=== PATIENT | female | born 1970 | race African-American/Black ===

== ENCOUNTER 2022-07-24 23:54 | Emergency (ER) | payer OTHER ==
[2022-07-25] MEDS ORDERED: METOCLOPRAMIDE 10 MG/2mL INJ ONE (00:38)
[2022-07-25] MEDS ORDERED: ONDANSETRON 4 MG/2 ML VIAL ONE (00:39)
[2022-07-25] MEDS ORDERED: DIPHENHYDRAMINE 50 MG/ML VIAL ONE (00:39)
[2022-07-25 01:01] LABS: Absolute Lymphocytes (CBC) 2.5 K/uL (0.7-4.9); Hematocrit 41.9 % (36.0-45.0); Lymphocytes % 22.9 % (15.3-44.8); MCV 91.2 fL (80-100); MPV 8.4 fL (7.6-11.3)
[2022-07-25 01:19] LABS: Magnesium 1.8 mg/dL (1.8-2.4); Potassium 3.6 mmol/L (3.5-5.1); Troponin High Sensitivity 13.7 pg/mL (<58.9)
[2022-07-25 01:22] LABS: Urine Blood Negative (Negative); Urine Glucose 3+ (Negative); Urine Protein Trace (Negative); Urine pH 7.5 (5.0-7.0)
[2022-07-25] MEDS ORDERED: KETOROLAC 30 MG/ML INJ ONE (02:07)
[2022-07-25] MEDS ORDERED: INSULIN -REGULAR HUMAN 50 UNIT/0.5 ML ML ONE (02:08)
--- NOTE | 2022-07-25 02:22 | ER ---
Nurse's Notes [facility] Name: Ramya Salinas Age: 52 yrs Sex: Female : 1970 Arrival Date: 07/24/2022 Time: 23:57 Bed 18 Private MD: Diagnosis: Headache;Hypertensive heart disease without heart failure;Diabetes mellitus due to underlying condition with hyperglycemia Presentation: 07/25 00:26 Chief complaint: Patient states: I have had a headache for 2 days now, I have vomited aa9 twice today and my BP is high. Coronavirus screen: Vaccine status: Patient reports receiving the 2nd dose of the covid vaccine. Ebola Screen: No symptoms or risks identified at this time. Initial Sepsis Screen: Does the patient meet any 2 criteria? No. Patient's initial sepsis screen is negative. Does the patient have a suspected source of infection? No. Patient's initial sepsis screen is negative. Risk Assessment: Do you want to hurt yourself or someone else? Patient reports no desire to harm self or others. Onset of symptoms was July 25, 2022. 00:26 Method Of Arrival: Ambulatory aa9 00:26 Acuity: MARITA 4 aa9 Triage Assessment: 00:29 Headache History: The patient has had previous headaches and this one is different than aa9 previous episodes. General: Appears uncomfortable, Behavior is cooperative, appropriate for age, anxious. Pain: Complains of pain in headache all over Pain currently is 8 out of 10 on a pain scale. Pain began 2-3 days ago. Noted to be moaning, resistant to movement, Also complains of nausea. EENT: No signs and/or symptoms were reported regarding the EENT system. Neuro: Level of Consciousness is awake, alert, obeys commands, Oriented to person, place, time, situation, Junior Brand Manager are equal bilaterally. Neuro: Reports headache in entire parietal area, frontal area, occipital area, photophobia. Cardiovascular: Patient's skin is warm and dry. Respiratory: Airway is patent Respiratory effort is even, unlabored. GI: Reports nausea, vomiting. : No signs and/or symptoms were reported regarding the genitourinary system. Derm: Skin is intact, is healthy with good turgor. Historical: - Allergies: 00:28 cats; aa9 00:28 SHELLFISH; aa9 00:28 Sulfa (Sulfonamide Antibiotics); aa9 00:28 seafood; aa9 - Home Meds: 00:28 hydrochlorothiazide 25 mg Oral tab [Active]; Jardiance 10 mg oral tab for type 2 aa9 diabetes mellitus [Active]; metformin 500 mg Oral tab [Active]; - PMHx: 00:28 Asthma; Diabetes mellitus; Hypertensive disorder; aa9 - PSHx: 00:28 None; aa9 - Immunization history:: Client reports receiving the 2nd dose of the Covid vaccine. - Social history:: Smoking status: . Screenin:31 Abuse screen: Denies threats or abuse. Denies injuries from another. Nutritional aa9 screening: No deficits noted. Tuberculosis screening: No symptoms or risk factors identified. Fall Risk None identified. Assessment: 02:00 Reassessment: Patient appears in no apparent distress at this time. General: Appears aa9 comfortable, Behavior is calm, cooperative, appropriate for age. Neuro: Level of Consciousness is awake, alert, obeys commands, Oriented to person, place, time, situation, Junior Brand Manager are equal bilaterally. Cardiovascular: Patient's skin is warm and dry. Respiratory: Airway is patent Respiratory effort is even, unlabored. : No signs and/or symptoms were reported regarding the genitourinary system. Derm: Skin is intact, is healthy with good turgor. Vital Signs: 00:26 BP 156 / 90; Pulse 80; Resp 18 S; Temp 97.6(O); Pulse Ox 100% on R/A; Weight 97.52 kg aa9 (R); Height 5 ft. 10 in. (177.80 cm) (R); Pain 8/10; 02:19 BP 148 / 93; Pulse 78; Resp 17 S; Pulse Ox 98% ; aa9 00:26 Body Mass Index 30.85 (97.52 kg, 177.80 cm) aa9 ED Course: 07/24 23:57 Patient arrived in ED. bp1 07/25 00:16 Christo Medina PA is PHCP. cp 00:16 Christo Adams MD is Attending Physician. cp 00:26 Kathryn Atkinson, FRANSICO is Primary Nurse. aa9 00:28 Triage completed. aa9 00:31 Arm band placed on. aa9 00:31 Patient has correct armband on for positive identification. Bed in low position. Call aa9 light in reach. Adult w/ patient. Door closed. Lights dimmed. 00:54 Inserted saline lock: 20 gauge in right hand, using aseptic technique. Blood collected. aa9 01: Basic Metabolic Panel Sent. aa9 : CBC with Diff Sent. aa9 01: Magnesium Sent. aa9 : Troponin HS Sent. aa9 01:05 XRAY Chest (1 view) In Process Unspecified. EDMS 01:16 CT Head Brain wo Cont In Process Unspecified. EDMS 01:28 Urine --Ancillary (enter results) Sent. aa9 02:29 No provider procedures requiring assistance completed. IV discontinued, intact, aa9 bleeding controlled, No redness/swelling at site. Pressure dressing applied. Administered Medications: 01:00 Drug: Zofran (Ondansetron) 4 mg Route: IVP; Site: right hand; aa9 01:33 Follow up: Response: No adverse reaction aa9 01:00 Drug: Benadryl (diphenhydrAMINE) 25 mg Route: IVP; Site: right hand; aa9 01:33 Follow up: Response: No adverse reaction aa9 01:01 Drug: Reglan (metoCLOPramide) 10 mg Route: IVP; Site: right hand; aa9 01:33 Follow up: Response: No adverse reaction aa9 02:12 Drug: Ketorolac 15 mg Route: IVP; Site: right hand; aa9 02:18 Follow up: Response: No adverse reaction aa9 02:15 Drug: Insulin Regular Human 10 units {Co-Signature: kd3 (Mitzy Lira RN).} Route: aa9 Sub-Q; Site: left lower abdomen; Medication: 00:31 VIS not applicable for this client. aa9 Outcome: 02:22 Discharge ordered by . cp 02:29 Discharged to home ambulatory, with family. aa9 02:29 Condition: stable 02:29 Discharge instructions given to patient, family, Instructed on discharge instructions, follow up and referral plans. medication usage, Demonstrated understanding of instructions, follow-up care, medications, Prescriptions given X 2. 02:30 Patient left the ED. aa9 Signatures: Dispatcher [employer] EDPR Christo Medina PA PA cp Paniauga, Brittany bp1 Avalos, Aylin, FRANSICO BATEMAN aa9 Mitzy Soraya RN kd3
--- NOTE | 2022-07-25 02:22 | EDPHYS ---
Physician Documentation [facility] Name: Ramya Salinas Age: 52 yrs Sex: Female : 1970 Arrival Date: 07/24/2022 Time: 23:57 Bed 18 Private MD: ED Physician Christo Adams HPI: 07/25 00:29 This 52 yrs old Black Female presents to ER via Ambulatory with complaints of Headache, cp Vomiting, High Blood Pressure. 00:29 The patient complains of pain to the all over. The patient describes the headache as cp aching, constant. Onset: The symptoms/episode began/occurred 2 day(s) ago. 00:30 Associated signs and symptoms: Pertinent positives: nausea, Photophobia vomiting, cp elevated blood pressure, Pertinent negatives: altered mental status, fever, neck stiffness, sinus congestion, sinus tenderness, weakness. 00:30 Severity of symptoms: in the emergency department the pain is unchanged, despite home cp interventions. Headache History: Other this headache is different that it has lasted longer and pain is all over head. Historical: - Allergies: 00:28 cats; aa9 00:28 SHELLFISH; aa9 00:28 Sulfa (Sulfonamide Antibiotics); aa9 00:28 seafood; aa9 - Home Meds: 00:28 hydrochlorothiazide 25 mg Oral tab [Active]; Jardiance 10 mg oral tab for type 2 aa9 diabetes mellitus [Active]; metformin 500 mg Oral tab [Active]; - PMHx: 00:28 Asthma; Diabetes mellitus; Hypertensive disorder; aa9 - PSHx: 00:28 None; aa9 - Immunization history:: Client reports receiving the 2nd dose of the Covid vaccine. - Social history:: Smoking status: . ROS: 00:35 Constitutional: Negative for body aches, chills, fever. cp 00:35 Abdomen/GI: Positive for nausea and vomiting. cp 00:35 Cardiovascular: Negative for chest pain, edema, palpitations. cp 00:35 Eyes: Positive for photophobia, Negative for discharge, pain. cp 00:35 ENT: Negative for drainage from ear(s), ear pain, sore throat, difficulty swallowing, difficulty handling secretions. 00:35 Neck: Negative for pain with movement, pain at rest, stiffness. 00:35 Respiratory: Negative for cough, shortness of breath, wheezing. 00:35 : Negative for urinary symptoms. 00:35 Neuro: Positive for headache, Negative for altered mental status, numbness, weakness. 00:35 All other systems are negative. Exam: 00:40 Constitutional: The patient appears in no acute distress, alert, awake, cp non-diaphoretic, non-toxic, well developed, well nourished, uncomfortable. 00:40 Head/Face: Normocephalic, atraumatic. cp 00:40 Eyes: Periorbital structures: appear normal, Pupils: equal, round, and reactive to light and accomodation, Extraocular movements: intact throughout, Conjunctiva: normal, no exudate, no injection, Sclera: no appreciated abnormality, Lids and lashes: appear normal, bilaterally. 00:40 ENT: External ear(s): are unremarkable, Ear canal(s): are normal, clear, TM's: bulging, is not appreciated, bilaterally, dullness, bilaterally, erythema, is not appreciated, bilaterally, Nose: is normal, Mouth: Lips: moist, Oral mucosa: pink and intact, moist, Posterior pharynx: Airway: no evidence of obstruction, patent, erythema, is not appreciated, exudate, is not appreciated. 00:40 Neck: ROM/movement: is normal, is supple, without pain, no range of motions limitations, no meningismus, no nuchal rigidity, Lymph nodes: no appreciated lymphadenopathy. 00:40 Chest/axilla: Inspection: normal. 00:40 Cardiovascular: Rate: normal, Rhythm: regular, Edema: is not appreciated, JVD: is not appreciated. 00:40 Respiratory: the patient does not display signs of respiratory distress, Respirations: normal, no use of accessory muscles, no retractions, labored breathing, is not present, Breath sounds: are clear throughout, no decreased breath sounds, no stridor, no wheezing. 00:40 Abdomen/GI: Inspection: abdomen appears normal, Palpation: abdomen is soft and non-tender, in all quadrants. 00:40 Neuro: Orientation: to person, place \T\ time. Mentation: is normal, Cerebellar function: is grossly normal, Motor: moves all fours, strength is normal, Sensation: is normal. 00:48 ECG was reviewed by the Attending Physician. cp 02:19 ECG was reviewed by the Attending Physician. cp Vital Signs: 00:26 BP 156 / 90; Pulse 80; Resp 18 S; Temp 97.6(O); Pulse Ox 100% on R/A; Weight 97.52 kg aa9 (R); Height 5 ft. 10 in. (177.80 cm) (R); Pain 8/10; 02:19 BP 148 / 93; Pulse 78; Resp 17 S; Pulse Ox 98% ; aa9 00:26 Body Mass Index 30.85 (97.52 kg, 177.80 cm) aa9 MDM: 00:16 Patient medically screened. matti 01:00 Differential diagnosis: intracerebral hemorrhage, meningitis, migraine, sinusitis, cp subarachnoid bleed, tension headache. 02:14 Data reviewed: vital signs, nurses notes, lab test result(s), EKG, radiologic studies, CT scan, plain films. Response to treatment: the patient's symptoms have markedly improved after treatment, Patient reports headache improved, and as a result, I will discharge patient. 07/25 00:29 Order name: Basic Metabolic Panel; Complete Time: 01:57 07/25 01:57 Interpretation: Normal except: NA 134; GLUC 368; GFR 78. 07/25 00:29 Order name: CBC with Diff; Complete Time: :57 07/25 00:29 Order name: Magnesium; Complete Time: :57 07/25 00:29 Order name: Troponin HS; Complete Time: 01:57 cp 07/25 01:22 Order name: Urine --Ancillary (enter results) mw2 07/25 01:23 Order name: Urine Dipstick-Ancillary; Complete Time: :57 EDMS 07/25 01:58 Interpretation: Normal except: UGLUC 3+; UPH 7.5; UPROT Trace. 07/25 00:29 Order name: XRAY Chest (1 view) 07/25 00:29 Order name: EKG; Complete Time: 00:29 07/25 00:29 Order name: CT Head Brain wo Cont 07/25 00:29 Order name: Cardiac monitoring; Complete Time: 01: 07/25 00:29 Order name: EKG - Nurse/Tech; Complete Time: 01:01 07/25 00:29 Order name: IV Saline Lock; Complete Time: 01: 07/25 00:29 Order name: Labs collected and sent; Complete Time: 01: cp 07/25 00:29 Order name: O2 Per Protocol; Complete Time: : cp 07/25 00:29 Order name: O2 Sat Monitoring; Complete Time: : cp 07/25 00:29 Order name: Urine Dipstick-Ancillary (obtain specimen); Complete Time: : cp 07/25 00:29 Order name: Urine Test (obtain specimen); Complete Time: : cp 07/25 02:09 Order name: EKG - Nurse/Tech; Complete Time: 02:19 cp EC:48 Rate is 77 beats/min. Rhythm is regular. QRS interval is normal. QT interval is normal. cp Interpreted by me. Reviewed by me. 02:19 Rate is 74 beats/min. Rhythm is regular. UT interval is normal. QRS interval is normal. cp QT interval is normal. T waves are Inverted in leads III, aVR. Interpreted by me. Reviewed by me. Administered Medications: 01:00 Drug: Zofran (Ondansetron) 4 mg Route: IVP; Site: right hand; aa9 01:33 Follow up: Response: No adverse reaction aa9 01:00 Drug: Benadryl (diphenhydrAMINE) 25 mg Route: IVP; Site: right hand; aa9 01:33 Follow up: Response: No adverse reaction aa9 01:01 Drug: Reglan (metoCLOPramide) 10 mg Route: IVP; Site: right hand; aa9 01:33 Follow up: Response: No adverse reaction aa9 02:12 Drug: Ketorolac 15 mg Route: IVP; Site: right hand; aa9 02:18 Follow up: Response: No adverse reaction aa9 02:15 Drug: Insulin Regular Human 10 units {Co-Signature: kd3 (Mitzy Lira RN).} Route: aa9 Sub-Q; Site: left lower abdomen; Disposition Summary: 07/25/22 02:22 Discharge Ordered Location: Home cp Problem: new cp Symptoms: have improved cp Condition: Stable cp Diagnosis - Headache cp - Hypertensive heart disease without heart failure cp - Diabetes mellitus due to underlying condition with hyperglycemia cp Followup: cp - With: Private Physician - When: 2 - 3 days - Reason: Recheck today's complaints Discharge Instructions: - Discharge Summary Sheet cp - Migraine Headache cp - Hypertension, Adult cp - Blood Glucose Monitoring, Adult cp - Diabetes Mellitus and Nutrition, Adult cp - Aspirin and Your Heart cp - Form - Blood Pressure Record Sheet cp - How to Take Your Blood Pressure cp Forms: - Medication Reconciliation Form cp - Thank You Letter cp - Antibiotic Education cp - Prescription Opioid Use cp Prescriptions: - Fioricet 50-300-40 mg Oral capsule - take 1 capsule by ORAL route every 4 hours as needed; 20 capsule; Refills: 0, cp Product Selection Permitted - Zofran 4 mg Oral Tablet - take 1 tablet by ORAL route every 12 hours As needed; 20 tablet; Refills: 0, cp Product Selection Permitted Signatures: Dispatcher [employer] EDChristo Tapia MD MD cha Page, Corey, PA PA Kathryn Jones, RN RN aa9 Mitzy Lira RN kd3
[2022-07-25 02:34] VITALS: TEMP 97.6
[2022-07-25 02:35] VITALS: BP 148/93; O2SAT 98
--- NOTE | 2022-07-25 13:46 | EKG ---
Test Date: 2022-07-25 Test Time: 00:44:37 Delivery Rep: HENRY MEASUREMENT RESULTS: Intervals: Rate: 77 [place]: QRSD: 76 QT: 390 QTc: 441 [place]: P: 71 KS: QRS: 27 T: -8 INTERPRETIVE STATEMENTS: Atrial flutter with 4:1 AV conduction Nonspecific T wave abnormality Abnormal ECG No previous ECG available for comparison Electronically Signed On 07-25-22 13:46:03 HOUSE CARPENTER HELPER by Russ Driver
--- NOTE | 2022-07-25 13:46 | EKG ---
Test Date: 2022-07-25 Test Time: 02:16:14 Energy Director: HENRY MEASUREMENT RESULTS: Intervals: Rate: 74 DC: 164 QRSD: 80 QT: 410 QTc: 455 [place]: P: 41 DC: 164 QRS: 6 T: -4 INTERPRETIVE STATEMENTS: Normal sinus rhythm Cannot rule out Anterior infarct, age undetermined Abnormal ECG Compared to ECG 07/25/2022 00:44:37 Myocardial infarct finding now present Atrial flutter no longer present T-wave abnormality no longer present Electronically Signed On 07-25-22 13:46:02 MERCHANT SEAMAN by Russ Driver
--- NOTE | 2022-07-25 15:16 | RAD REPORT ---
EXAM DESCRIPTION: RAD - Chest Single View - 07/25/2022 1:03 am CLINICAL HISTORY: 52 years, Female, hypertension COMPARISON: None. FINDINGS: Single view of the chest was obtained portable. No prior films are available for compariso n. Studies comprised due to underpenetration x-ray beam due to patient large body habitus. The cardio mediastinal silhouette demonstrate to be unremarkable. The heart is not enlarged. The thoracic aorta is unremarkable. No significant pleural effusions and/or significant focal areas of consolidation. The rest of the soft tissue and bony structures demonstrate to be unremarkable. IMPRESSION: No acute cardiopulmonary disease identified. Electronically signed by: Carlos A Parker MD 07/25/2022 1:13 AM HOG OPERATOR Due to temporary technical issues with the PACS/Fluency reporting system, reports are being signed by the in house radiologists without review as a courtesy to insure prompt reporting. The interpreting radiologist is fully responsible for the content of the report.
--- NOTE | 2022-07-25 15:18 | RAD REPORT ---
EXAM DESCRIPTION: CT - Head Brain Wo Cont - 07/25/2022 6:38 am CLINICAL HISTORY: 52 years, Female, headache COMPARISON: None FINDINGS: Multiple transaxial tomograms of the brain were obtained from the base of the skull to the vertex without contrast. 2-D multiplanar reformats and the coronal and sagittal plane were performed and reviewed. This exam was performed according to our departmental dose-optimization protocol, which includes auto mated exposure control, adjustment of the mA and/or kV according to patient size and/or use of iterat roger reconstruction technique. Brain parenchyma as well as the mueller and white matter differentiation demonstrate to be unremarkable. There is no midline shift and/or mass effect. There is no evidence for acute hemorrhage. No focal ar eas of hypodensities. Lateral ventricles and cisterns displace normal appearance. No intra or ext ra axial fluid collections were seen. The calvarium is intact with no evidence for fracture. The visu alized portions of the paranasal sinuses and orbits demonstrate to be clear. IMPRESSION: No acute intracranial hemorrhage identified. Unremarkable CT scan of the head without contrast. Electronically signed by: Carlos A Parker MD 07/25/2022 1:36 AM [facility] Due to temporary technical issues with the PACS/Fluency reporting system, reports are being signed by the in house radiologists without review as a courtesy to insure prompt reporting. The interpreting radiologist is fully responsible for the content of the report.
== END 2022-07-25 02:30 | disposition home or self-care (01) ==
LOC: ER 23:54
DX: I11.9 Hypertensive heart disease without heart failure (principal); E11.65 Type 2 diabetes mellitus with hyperglycemia; J45.909 Unspecified asthma, uncomplicated; Z88.2 Allergy status to sulfonamides; Z91.013 Allergy to seafood
CPT/HCPCS: 93005 ×2; 85025; 80048; 36415; 83735; 81025; 81003; 84484; 70450; 71045; 96375; 96372; 96374; 99284; J2765; J1200; J1815; J2405